=== PATIENT | male | born 1935 | race Caucasian/White ===

== ENCOUNTER 2020-01-16 07:23 | Inpatient (IN) | payer MEDICARE, OTHER ==
--- NOTE | 2020-01-11 12:01 | Diagnostic Imaging Report ---
X-ray chest PA and lateral views Comparison: None area History: Preop Findings: Lateral views submitted on 2 images. Cardiomediastinal silhouettes are unremarkable. There is atherosclerotic calcification of aorta. There is no pleural effusion. There is no pneumothorax. There is no focal lung infiltrate. There is possibility of 2, 6-mm nodules in the right upper lung zone. This can be further characterized by comparison with the previous x-ray or a CT may be performed for further evaluation. Degenerative changes of the thoracic spine. Osteopenia. No significant abnormality of the upper abdomen. Impression: No acute cardiopulmonary disease. Please see above regarding right lung nodules. Signed by: Napoleon Velazquez MD on 01/11/2020 11:58 AM
[2020-01-11 12:14] LABS: BASOPHILS # (AUTO) 0.1 (0.0-0.1); BASOPHILS % 0.5 % (0.0-1.0); EOSINOPHILS # (AUTO) 0.1 (0.0-0.4); EOSINOPHILS % 0.8 % (0.0-6.0); HEMATOCRIT 34.3 % (38.2-49.6); HEMOGLOBIN 10.8 g/dL (14.0-18.0); LYMPHOCYTES # (AUTO) 1.6 (1.0-3.2); LYMPHOCYTES % 15.2 % (18.0-39.1); MEAN CORPUSCULAR HEMOGLOBIN 30.3 pg (28-32); MEAN CORPUSCULAR HGB CONC 31.5 g/dL (31-35); MEAN CORPUSCULAR VOLUME 96.1 fL (81-99); MONOCYTES # (AUTO) 0.9 (0.2-0.8); MONOCYTES % 8.8 % (4.4-11.3); NEUTROPHILS # (AUTO) 7.6 (2.1-6.9); NEUTROPHILS % 74.2 % (38.7-80.0); PLATELET COUNT 252 x10e3/uL (140-360); RED BLOOD COUNT 3.57 x10e6/uL (4.3-5.7); RED CELL DISTRIBUTION WIDTH 12.4 % (11.7-14.4)
[2020-01-11 12:24] LABS: ANION GAP 17.3 mmol/L (8-16); POTASSIUM 4.3 mmol/L (3.5-5.1)
[~2020-01-16] VITALS: Ht 177.8 cm; Wt 88.5 kg
[~2020-01-16 07:23] MED LIST: ASPIRIN81 MG PO; CARDIA PO; FENOFIBRATE54 MG PO; FLOMAX0.4 MG PO; HYDROCHLOROTHIA25 MG PO; JANUVIA50 MG PO; LOSARTAN POTASS25 MG PO; MYRBETRIQ50 MG PO; PRESERVISION A1 EACH PO; PROBIOTIC & AC1 EACH PO; SIMVASTATIN40 MG PO
[2020-01-16] MEDS ORDERED: CEFTRIAXONE SOD 1 GM/NS 50 ML 50 ML IV ONE (08:10)
[2020-01-16] MEDS ORDERED: GENTAMICIN 80MG/NS 100 ML 200 ML IV ONE (08:10)
[2020-01-16] MEDS ORDERED: B&O 60MG R/S 60 MG SUPP PR ONE (10:01)
[2020-01-16] MEDS ORDERED: IOPAMIDOL 300MG/ML 50ML INFUS..BTL IV ONE (10:02)
[2020-01-16] MEDS ORDERED: PIPER-TAZ 3.375 GM 50 ML ONE (11:05)
[2020-01-16] MEDS ORDERED: PHENAZOPYRIDINE HCL 100 MG TAB PO PRN (12:00)
[2020-01-16] MEDS ORDERED: ACETAMINOPHEN/CODEINE 300MG - 30MG TAB PO PRN (12:00)
[2020-01-16] MEDS ORDERED: B&O 60MG R/S 60 MG SUPP PR PRN (12:00)
[2020-01-16] MEDS ORDERED: ONDANSETRON HCL INJ 2MG/ML 2ML 2 MG/ML VIAL IV PRN (12:00)
[2020-01-16] MEDS ORDERED: DIPHENHYDRAMINE HCL 25 MG CAP PO PRN (12:00)
[2020-01-16] MEDS ORDERED: ACETAMINOPHEN 1000 MG/100 ML IV PRN (12:00)
[2020-01-16 12:34] LABS: BASOPHILS % 0.2 % (0.0-1.0); EOSINOPHILS % 0.3 % (0.0-6.0); HEMATOCRIT 28.7 % (38.2-49.6); HEMOGLOBIN 8.9 g/dL (14.0-18.0); LYMPHOCYTES # (AUTO) 1.2 (1.0-3.2); LYMPHOCYTES % 9.2 % (18.0-39.1); MEAN CORPUSCULAR HEMOGLOBIN 30.6 pg (28-32); MEAN CORPUSCULAR VOLUME 98.6 fL (81-99); MONOCYTES # (AUTO) 0.6 (0.2-0.8); MONOCYTES % 4.8 % (4.4-11.3); NEUTROPHILS # (AUTO) 11.1 (2.1-6.9); PLATELET COUNT 165 x10e3/uL (140-360); RED BLOOD COUNT 2.91 x10e6/uL (4.3-5.7); RED CELL DISTRIBUTION WIDTH 12.2 % (11.7-14.4)
[2020-01-16 12:51] LABS: ANION GAP 12.2 mmol/L (8-16); CALCIUM 7.6 mg/dL (8.4-10.2); CREATININE, SERUM 1.21 mg/dL (0.72-1.25); POTASSIUM 4.2 mmol/L (3.5-5.1)
[2020-01-16 13:00] VITALS: BP 123/51
[2020-01-16 13:01] VITALS: BP 123/51
--- NOTE | 2020-01-16 13:01 | NUR ---
Received from PACU at this time. Pt is aox3 and able to verbalize needs. Pt is on continuous bladder irrigation with light pink clear urine. Pt denies any pain at this time. 0 s/s of acute distress noted.
[2020-01-16 13:50] VITALS: BP 128/51
[2020-01-16] MEDS ORDERED: FENTANYL CITRATE/PF 100MCG/2 ML INJ ONE (15:00)
[2020-01-16] MEDS: SODIUM CHLORIDE 0.9% 1000ML 1,000 ML IV SCH (16:14)
[2020-01-16 16:20] VITALS: BP 130/73
[2020-01-16] MEDS: DOCUSATE SODIUM 100 MG CAP PO SCH (17:16)
[2020-01-16 20:00] VITALS: BP 148/68
[2020-01-16] MEDS ORDERED: DEXAMETHASONE SOD PHOS INJ 4 MG/ML VIAL ONE (20:05)
[2020-01-16] MEDS ORDERED: EPHEDRINE SULFATE INJ 50 MG/ML VIAL ONE (20:05)
[2020-01-16] MEDS ORDERED: ONDANSETRON HCL INJ 2MG/ML 2ML 2 MG/ML VIAL ONE (20:05)
[2020-01-16] MEDS ORDERED: LIDOCAINE HCL 2% LOCAL INJ 5 ML SDV VIAL INJ ONE (20:05)
[2020-01-16] MEDS ORDERED: ETOMIDATE 2 MG/ML 10 ML INJ IV ONE (20:05)
[2020-01-16] MEDS ORDERED: SEVOFLURANE INHAL SOLN 250 ML PEN BTL ONE (20:05)
[2020-01-16] MEDS: PIPERACILLIN/TAZO 2.25 GM 50 ML IV SCH (21:15)
[2020-01-17] VITALS (7 sets, daily range): BP systolic 121–156; BP diastolic 55–73
--- NOTE | 2020-01-17 01:46 | Operative Report ---
DATE OF PROCEDURE: 01/16/2020 SURGEON: Brant Lamar MD PREOPERATIVE DIAGNOSES: 1. Obstructive BPH. 2. Urinary tract infections. POSTOPERATIVE DIAGNOSES: 1. Obstructive BPH. 2. Urinary tract infections. 3. Bulbar urethral stricture disease. OPERATIONS PERFORMED: 1. Cystourethroscopy with calibration and dilation of stricture (separate procedure performed for the diagnosis of the stricture). 2. Cystourethroscopy with bilateral ureteral catheterization and retrograde ureteropyelography (separate procedure performed for the urinary tract infections). 3. Interpretation of retrograde ureteropyelography. 4. Supervision of fluoroscopy, no radiologist present. 5. Cystourethroscopy with transurethral resection of prostate utilizing a plasma button electrode. ANESTHESIA: General. COMPLICATIONS: None. CLINICAL SUMMARY: Joe Ruiz is an 84-year-old man with the above preoperative diagnoses. He is brought for the above procedures. He is aware of the risks of bleeding, infection, injury to adjacent structures, need for additional procedures and elected to proceed. He also understands the risks of incontinence, impotence, retrograde ejaculation, need for additional procedures and elected to proceed. OPERATIVE PROCEDURE IN DETAIL: Informed consent was verified. Joe Ruiz was properly identified, taken to the operating room, placed on the cystoscopy table in supine position. Anesthesia was uneventfully begun. The patient was then carefully gently repositioned in dorsal lithotomy position with all pressure points well padded. His genitalia were prepared and draped in the usual sterile fashion. The cystoscope sheath with the visual obturator in place was atraumatically inserted into the patient's urethra, was guided unremarkable urethra to the bulbar region where there was a short stricture. We gently dilated across the stricture with a 21-Hebrew cystoscope sheath. We went through the normal sphincteric region through the prostate bed, which was significant for visual obstructing BPH. We entered the patient's bladder. Panendoscopy revealed trabeculations, but no tumors, no stones, and no diverticula. Normally positioned and configured ureteral orifices were identified. A ureteral catheter was used to cannulate each ureter and retrograde ureteral pyelograms were performed. Interpretation of retrograde ureteropyelography contrast was instilled in retrograde fashion bilaterally. There were no tumors, no stones, no diverticula. Unobstructed drainage was observed bilaterally fluoroscopically. The distal left ureter was displaced medially rather dramatically and its insertion in the bladder was rather high. The right ureter exhibited J-hooking. We then finished the dilation of the patient's urethral stricture to 28-Hebrew in size utilizing Will sounds. We then atraumatically placed the resectoscope sheath into the patient's bladder and we utilized the plasma button electrode to vaporize the prostate from the bladder neck to maneuver past the verumontanum and down to the surgical capsule. Pinpoint electrocautery was utilized to achieve hemostasis. The resectoscope was withdrawn. A continuous irrigation Penn catheter was then placed. It was irrigated to-and-fro to ensure it worked properly. A belladonna and opium suppository was placed revealing a 35 g prostate, smooth, non-fluctuant, without any nodules. The patient was then uneventfully reversed from anesthesia and taken to recovery room in stable condition. PLANS: Will be to proceed with routine postoperative care. We will follow up on the patient's medially displaced left ureter as transaxial imaging may be warranted. Brant Lamar MD [place]/MODL /[id number]
[2020-01-17] MEDS: SODIUM CHLORIDE 0.9% 1000ML 1,000 ML IV SCH (05:18)
[2020-01-17] MEDS: PIPERACILLIN/TAZO 2.25 GM 50 ML IV SCH ×3 (05:21→20:46)
[2020-01-17 05:47] LABS: BASOPHILS % 0.2 % (0.0-1.0); HEMATOCRIT 29.2 % (38.2-49.6); HEMOGLOBIN 9.1 g/dL (14.0-18.0); LYMPHOCYTES % 6.9 % (18.0-39.1); MEAN CORPUSCULAR HGB CONC 31.2 g/dL (31-35); MEAN CORPUSCULAR VOLUME 96.4 fL (81-99); MONOCYTES # (AUTO) 1.1 (0.2-0.8); MONOCYTES % 7.6 % (4.4-11.3); NEUTROPHILS % 84.7 % (38.7-80.0); PLATELET COUNT 208 x10e3/uL (140-360); RED BLOOD COUNT 3.03 x10e6/uL (4.3-5.7); RED CELL DISTRIBUTION WIDTH 12.3 % (11.7-14.4)
[2020-01-17 06:29] LABS: ANION GAP 12.9 mmol/L (8-16); CALCIUM 8.4 mg/dL (8.4-10.2); CREATININE, SERUM 1.51 mg/dL (0.72-1.25); POTASSIUM 4.9 mmol/L (3.5-5.1)
[2020-01-17] MEDS: DOCUSATE SODIUM 100 MG CAP PO SCH ×2 (08:57→16:20)
[2020-01-17] MEDS ORDERED: DEXTROSE 50% SYRINGE 50 ML IV PRN (09:30)
[2020-01-17] MEDS ORDERED: HYDRALAZINE HCL 25 MG TAB PO PRN (09:30)
[2020-01-17] MEDS ORDERED: MAGNESIUM SULFATE 2GM/50ML IV ONE (09:30)
[2020-01-17] MEDS ORDERED: ONDANSETRON HCL INJ 2MG/ML 2ML 2 MG/ML VIAL IV PRN (09:30)
[2020-01-17] MEDS ORDERED: CARDIA PO SCH (09:30)
[2020-01-17] MEDS ORDERED: MAGNESIUM SULFATE 2GM/50ML 50 ML IV ONE (10:45)
[2020-01-17] MEDS: INSULIN LISPRO 100 UNIT/1 ML 3ML VIAL SQ SCH ×3 (12:30→21:00)
--- NOTE | 2020-01-17 13:17 | NUR ---
Discontinuing PT services since patient is Mod I in functional mobility. Thank you Addendum: 01/17/20 at 1318 by Jt yin PT Amended: Links added.
[2020-01-17] MEDS: TAMSULOSIN HCL 0.4 MG CAP PO SCH (16:20)
--- NOTE | 2020-01-17 19:30 | NUR ---
walking rounds complete, pt stable at shift change. report given to oncoming nurse.
[2020-01-17] MEDS: SIMVASTATIN 40 MG TAB PO SCH (21:00)
[2020-01-17] MEDS: DILTIAZEM HCL ER 120 MG CAP PO SCH (21:12)
[2020-01-18] VITALS (7 sets, daily range): BP systolic 130–164; BP diastolic 63–69
[2020-01-18] MEDS: PIPERACILLIN/TAZO 2.25 GM 50 ML IV SCH ×3 (05:32→20:00)
[2020-01-18 06:02] LABS: BASOPHILS % 0.3 % (0.0-1.0); EOSINOPHILS # (AUTO) 0.1 (0.0-0.4); HEMATOCRIT 29.9 % (38.2-49.6); HEMOGLOBIN 9.3 g/dL (14.0-18.0); LYMPHOCYTES % 16.9 % (18.0-39.1); MEAN CORPUSCULAR HGB CONC 31.1 g/dL (31-35); MEAN CORPUSCULAR VOLUME 96.5 fL (81-99); MONOCYTES # (AUTO) 1.1 (0.2-0.8); MONOCYTES % 9.7 % (4.4-11.3); NEUTROPHILS # (AUTO) 8.5 (2.1-6.9); NEUTROPHILS % 71.5 % (38.7-80.0); PLATELET COUNT 187 x10e3/uL (140-360); RED CELL DISTRIBUTION WIDTH 12.4 % (11.7-14.4)
[2020-01-18 06:47] LABS: ANION GAP 11.2 mmol/L (8-16); CALCIUM 8.7 mg/dL (8.4-10.2); CREATININE, SERUM 1.29 mg/dL (0.72-1.25); POTASSIUM 4.2 mmol/L (3.5-5.1)
[2020-01-18 07:01] LABS: MAGNESIUM 1.6 MG/DL (1.3-2.1); PHOSPHORUS 2.1 MG/DL (2.3-4.7)
[2020-01-18] MEDS: INSULIN LISPRO 100 UNIT/1 ML 3ML VIAL SQ SCH ×4 (07:30→21:00)
[2020-01-18] MEDS: NON-FORMULARY MEDICATION (Mirabegron (Myrbetriq) 50 MG) PO SCH (09:00)
[2020-01-18] MEDS: NON-FORMULARY MEDICATION (Vit A/Vit C/Vit E/Zinc/Copper (Preservision Areds Softgel) 1 CAP PO SCH (09:00)
[2020-01-18] MEDS: DILTIAZEM HCL ER 120 MG CAP PO SCH ×2 (09:00→21:00)
[2020-01-18] MEDS: NON-FORMULARY MEDICATION (Fenofibrate 54 MG) PO SCH (09:00)
[2020-01-18] MEDS: NON-FORMULARY MEDICATION (Sitagliptin Phosphate (Januvia) 50 MG) PO SCH (09:00)
[2020-01-18] MEDS: LACTOBACILLUS ACIDOPHILUS CAPSULE PO SCH (09:00)
[2020-01-18] MEDS: TAMSULOSIN HCL 0.4 MG CAP PO SCH ×2 (09:00→17:00)
[2020-01-18] MEDS: DOCUSATE SODIUM 100 MG CAP PO SCH ×2 (09:00→17:00)
--- NOTE | 2020-01-18 15:56 | NUR ---
Dr Lamar had rounds, new orders recvd
--- NOTE | 2020-01-18 16:18 | NUR ---
DC d Penn Catheter, patient was instructed to get the serial of urine,
[2020-01-18] MEDS: SIMVASTATIN 40 MG TAB PO SCH (21:00)
[2020-01-19] VITALS: BP 127/60
[2020-01-19 04:00] VITALS: BP 153/81
[2020-01-19] MEDS: PIPERACILLIN/TAZO 2.25 GM 50 ML IV SCH (05:18)
[2020-01-19 05:44] LABS: BASOPHILS % 0.2 % (0.0-1.0); EOSINOPHILS # (AUTO) 0.1 (0.0-0.4); EOSINOPHILS % 1.3 % (0.0-6.0); HEMATOCRIT 28.7 % (38.2-49.6); HEMOGLOBIN 9.3 g/dL (14.0-18.0); LYMPHOCYTES # (AUTO) 1.5 (1.0-3.2); LYMPHOCYTES % 15.3 % (18.0-39.1); MEAN CORPUSCULAR HEMOGLOBIN 31.1 pg (28-32); MEAN CORPUSCULAR HGB CONC 32.4 g/dL (31-35); MONOCYTES # (AUTO) 1.3 (0.2-0.8); MONOCYTES % 13.3 % (4.4-11.3); NEUTROPHILS # (AUTO) 6.6 (2.1-6.9); NEUTROPHILS % 69.7 % (38.7-80.0); PLATELET COUNT 168 x10e3/uL (140-360); RED BLOOD COUNT 2.99 x10e6/uL (4.3-5.7)
[2020-01-19 06:26] LABS: ANION GAP 15.4 mmol/L (8-16); CALCIUM 8.7 mg/dL (8.4-10.2); CREATININE, SERUM 1.35 mg/dL (0.72-1.25); POTASSIUM 4.4 mmol/L (3.5-5.1)
[2020-01-19 07:46] VITALS: BP 147/78
[2020-01-19 08:11] VITALS: BP 147/78
[2020-01-19] MEDS: INSULIN LISPRO 100 UNIT/1 ML 3ML VIAL SQ SCH (08:13)
[2020-01-19] MEDS: NON-FORMULARY MEDICATION (Fenofibrate 54 MG) PO SCH (08:16)
[2020-01-19] MEDS: NON-FORMULARY MEDICATION (Sitagliptin Phosphate (Januvia) 50 MG) PO SCH (08:16)
[2020-01-19] MEDS: NON-FORMULARY MEDICATION (Vit A/Vit C/Vit E/Zinc/Copper (Preservision Areds Softgel) 1 CAP PO SCH (08:16)
[2020-01-19] MEDS: NON-FORMULARY MEDICATION (Mirabegron (Myrbetriq) 50 MG) PO SCH (08:16)
[2020-01-19] MEDS: TAMSULOSIN HCL 0.4 MG CAP PO SCH (08:17)
[2020-01-19] MEDS: DILTIAZEM HCL ER 120 MG CAP PO SCH (08:17)
[2020-01-19] MEDS: DOCUSATE SODIUM 100 MG CAP PO SCH (08:17)
[2020-01-19] MEDS: LACTOBACILLUS ACIDOPHILUS CAPSULE PO SCH (08:17)
--- NOTE | 2020-01-19 09:59 | NUR ---
Dr Chopra instructed not to wait for Dr Charles and D/C patient home now.
--- NOTE | 2020-01-19 12:17 | Discharge Summary ---
OUTSIDE OPERATOR: Dr. Brant Lamar. FINAL DIAGNOSES: 1. Status post transurethral resection of the prostate. 2. Continue his urinary bladder irrigation for prevention of blood clots postop care. The patient had gross hematuria. 3. Urinary retention baseline with enlarged prostate. 4. Recurrent urinary tract infection with leukocytosis postop. SUMMARY: The patient is an 84-year-old male with status post TURP by Dr. Brant Lamar, admitted for postoperative care. The patient had gross hematuria. The patient did continue with the urinary bladder irrigation. He did have leukocytosis on postop care. The patient was on antibiotic. WBC was 14.1 thousand, went down to 13 and then down to 11.8 thousand and today is 9.47 thousand. The patient is doing much better. He is stable. He is urinating urine has been clear. No bloody urine. The patient is stable and discharged home. Resume home medication. He will take Levaquin 250 mg daily for 7 days and Tylenol No. 3 p.r.n. for pain. The patient is to follow up with Dr. Brant Lamar for postoperative care. DISCHARGE DIET: ADA diet. ACTIVITY: As tolerated. Resume home medications. MD TERE Cueva/TAYO /[id number]
== END 2020-01-19 10:56 | disposition home or self-care (01) | DRG 713 ==
LOC: OR 07:23 → PACU V 11:58 → MED/SURG 13:00
PROVIDERS: ADMIT Urology; ATTEND Urology
PROC: 0T788ZZ Dilation of Bilateral Ureters, Via Natural or Artificial Opening Endoscopic (ICD-10-PCS; 2020-01-16)
PROC: BT141ZZ Fluoroscopy of Kidneys, Ureters and Bladder using Low Osmolar Contrast (ICD-10-PCS; 2020-01-16)
PROC: 0VB08ZZ Excision of Prostate, Via Natural or Artificial Opening Endoscopic (ICD-10-PCS; principal; 2020-01-16 10:00)
DX: N40.0 Benign prostatic hyperplasia without lower urinary tract symptoms (principal); N39.0 Urinary tract infection, site not specified
CPT/HCPCS: 36415; 71046; 74420; 80048; 82948; 83735; 84100; 85025; 93005; 97139; C1758; J0696; J1100; J1580; J2001; J2405; J2543; J3010; J3475; J7030; U0002